=== PATIENT | male | born 1990 | race Caucasian/White ===

== ENCOUNTER 2017-12-21 08:18 | Outpatient (CLI) | payer OTHER ==
[~2017-12-21 08:18] MED LIST: NO HOME MEDS
== END 2017-12-21 09:22 | disposition home or self-care (01) ==
LOC: ORTHO 08:18
PROVIDERS: ATTEND Nurse Practitioner Family
DX: S92.355A Nondisplaced fracture of fifth metatarsal bone, left foot, initial encounter for closed fracture (principal); S93.492A Sprain of other ligament of left ankle, initial encounter; F12.90 Cannabis use, unspecified, uncomplicated; X58.XXXA Exposure to other specified factors, initial encounter; Y93.89 Activity, other specified; Y92.89 Other specified places as the place of occurrence of the external cause; Y99.8 Other external cause status
CPT/HCPCS: 99213; L4360

== ENCOUNTER 2018-01-12 13:35 | Outpatient (CLI) | payer OTHER | END 2018-01-12 14:02 | disposition home or self-care (01) | LOC: ORTHO 13:35 | PROVIDERS: ATTEND Nurse Practitioner Family | DX: S92.355D Nondisplaced fracture of fifth metatarsal bone, left foot, subsequent encounter for fracture with routine healing (principal); S93.492D Sprain of other ligament of left ankle, subsequent encounter; F12.90 Cannabis use, unspecified, uncomplicated; Z72.89 Other problems related to lifestyle; X58.XXXD Exposure to other specified factors, subsequent encounter | CPT/HCPCS: 73630; 99213 ==

== ENCOUNTER 2024-09-07 13:03 | Inpatient (IN) | payer BC ==
[~2024-09-07] VITALS: Ht 182.9 cm; Wt 86.4 kg
[2024-09-07] VITALS (7 sets, daily range): PULSE 74–84; RESP 16–33; O2SAT 94–100
[2024-09-07] MEDS: ondansetron/PF 4mg/2ml inj IV ONE ×2 (13:05→14:27)
[2024-09-07] MEDS: morphine 4 MG/ML inj SYRINge IV ONE (13:05)
[2024-09-07] MEDS: albuterol 2.5 MG/3 ML nebule CONTNEB PRN (13:13)
[2024-09-07 13:18] LABS: BASOPHILS # (AUTO) 0.1 X10'3 (0-0.2); BASOPHILS % (AUTO) 0.4 % (0-1); EOSINOPHILS % (AUTO) 4.9 % (0-6); HEMATOCRIT 50.4 % (42.0-52.0); HEMOGLOBIN 16.9 g/dl (14.0-17.9); LYMPHOCYTES # (AUTO) 4.8 X10'3 (1.1-4.8); LYMPHOCYTES % (AUTO) 23.9 % (21-51); MEAN CORPUSCULAR HEMOGLOBIN 30.5 PG (27.0-31.0); MEAN CORPUSCULAR HGB CONC 33.5 g/dL (33.0-36.5); MEAN CORPUSCULAR VOLUME 91.2 FL (78-98); MEAN PLATELET VOLUME 7.7 FL (7.4-10.4); MONOCYTES # (AUTO) 1.8 X10'3 (0-0.9); MONOCYTES % (AUTO) 9.1 % (2-12); NEUTROPHILS # (AUTO) 12.4 X10'3 (1.8-7.7); NEUTROPHILS % (AUTO) 61.7 % (42-75); PLATELET COUNT 273 X10'3 (140-440); RED BLOOD COUNT 5.52 X10'6 (4.70-6.10); RED CELL DISTRIBUTION WIDTH 13.5 % (11.5-14.5); WHITE BLOOD COUNT 20.2 X10'3 (4.5-11.0)
[2024-09-07] MEDS: methylPREDNISolone sod succ 125mg/2ml vial IV ONE (13:19)
[2024-09-07] MEDS: midazolam 1 mg/ML 2ml injection IV ONE (13:19)
[2024-09-07 13:43] LABS: ALANINE AMINOTRANSFERASE 22 U/L (12-78); ALBUMIN 4.5 G/DL (3.4-5.0); ALBUMIN/GLOBULIN RATIO 1.4 (1.1-1.5); ALKALINE PHOSPHATASE 81 IU/L (46-116); ANION GAP 10 (8-16); ASPARTATE AMINO TRANSFERASE 18 U/L (10-37); BILIRUBIN,TOTAL 0.6 MG/DL (0.1-1.0); BLOOD UREA NITROGEN 13 MG/DL (7-18); BUN/CREATININE RATIO 13.3 (10.0-20.0); CALCIUM 8.7 MG/DL (8.5-10.1); CHLORIDE 110 MMOL/L (99-107); CREATININE 0.98 MG/DL (0.60-1.10); GLUCOSE 160 MG/DL (70-104); POTASSIUM 4.5 MMOL/L (3.5-5.1); SODIUM 147 MMOL/L (135-145); TOTAL PROTEIN 7.8 G/DL (6.4-8.2); eGFR 87 ML/MIN
[2024-09-07 13:50] LABS: ABG BASE EXCESS -10.6 mmol/L (-2.0-3.0); ABG HCO3 16.8 mmol/L (21.0-28.0); ABG OXYGEN SATURATION 99.6 % (94.0-98.0); ABG PCO2 (T) 41.2 mmHg (35.0-48.0); ABG PH (T) 7.224 (7.350-7.450); ABG PO2 (T) 457.7 mmHg (83.0-108.0); ALLEN'S TEST POSITIVE; FCOHb 0.3 % (0.5-1.5); FHHb 0.4 % (0.0-5.0); FMetHb 0.2 % (0.0-1.5); FO2Hb 99.1 % (94.0-98.0); MODE BiPAP; PATIENT TEMPERATURE 36.2; TOTAL HEMOGLOBIN 16.7 G/dl (13.5-17.5)
[2024-09-07 13:50] LABS: PRO BRAIN NATRIURETIC PEPTIDE 88 PG/ML (0-125)
[2024-09-07] MEDS: diphenhydrAMINE 50 mg/ml inj IV ONE (14:10)
[2024-09-07] MEDS: metoclopramide 5 mg/ml inj IV ONE (14:23)
[2024-09-07] MEDS: normal saline 1000ml 1,000 ML IVB ONE (14:27)
[2024-09-07] MEDS ORDERED: propofol 1000mg/100ml bottle 100 ML IV SCH (16:25)
[2024-09-07] MEDS: CefTRIAXone 2gm/D5W 50ml BAG 50 ML IV ONE (17:58)
[2024-09-07] MEDS: normal saline 1000ML IV soln IVB ONE (17:59)
[2024-09-07] MEDS ORDERED: ALBU10.7 IH (19:49)
[2024-09-07] MEDS ORDERED: albuterol 2.5 MG/3 ML nebule NEB PRN (20:30)
[2024-09-07] MEDS ORDERED: mag hydrox/Alum hydrox/simeth 30ml oral suspension PO PRN (20:30)
[2024-09-07] MEDS ORDERED: ondansetron/PF 4mg/2ml inj IV PRN (20:30)
[2024-09-07] MEDS ORDERED: magnesium Cl slow-release 64mg tablet PO PRN (20:30)
[2024-09-07] MEDS ORDERED: magnesium sulf-water 4G/100mL 100 ML IV PRN (20:30)
[2024-09-07] MEDS ORDERED: morphine 2 MG/ML inj. syringe IV PRN (20:30)
[2024-09-07] MEDS ORDERED: potassium Cl 40MEQ/1/2NS 520ml 520 ML IV PRN (20:30)
[2024-09-07] MEDS ORDERED: magnesium hydroxide 30ml (MOM) UD suspension PO PRN (20:30)
[2024-09-07] MEDS ORDERED: acetaminophen 325mg tablet PO PRN ×2 (20:30)
[2024-09-07] MEDS ORDERED: potassium Cl 20 mEq SR tablet PO PRN ×2 (20:30)
[2024-09-07] MEDS ORDERED: magnesium sulf-water 2g/50mL 50 ML IV PRN (20:30)
[2024-09-07 20:40] LABS: BILIRUBIN,URINE NEGATIVE (Neg); CLARITY,URINE CLOUDY (Clear); COLOR,URINE YELLOW (Yellow); GLUCOSE, URINE 100 mg/dl (Neg); KETONES,URINE NEGATIVE (Neg); LEUKOCYTE ESTERASE ,URINE NEGATIVE (Neg); NITRITES, URINE NEGATIVE (Neg); OCCULT BLOOD,URINE TRACE-INTACT (Neg); PH,URINE 5.5 (4.8-8.0); PROTEIN,URINE >=300 mg/dl (Neg); UROBILINOGEN,URINE 0.2 E.U/dL (0.2-1.0)
[2024-09-07 21:29] LABS: URINE AMPHETAMINE SCREEN NEGATIVE (Neg); URINE BARBITUATE SCREEN NEGATIVE (Neg); URINE BENZODIAZEPINES SCREEN POSITIVE (Neg); URINE CANNABINOID SCREEN POSITIVE (Neg); URINE COCAINE SCREEN NEGATIVE (Neg); URINE METHADONE SCREEN NEGATIVE (Neg); URINE OPIATE SCREEN NEGATIVE (Neg); URINE PHENCYCLIDINE SCREEN NEGATIVE (Neg)
[2024-09-07] MEDS: ipratropium/albuterol 3ml nebule NEB SCH (21:34)
[2024-09-07 21:44] LABS: UA COLLECTION TYPE STRAIGHT CATH
[2024-09-07 21:45] LABS: AMORPHOUS URATES 3+; BACTERIA,URINE NONE SEEN /HPF (Neg); SQUAMOUS EPITHELIAL CELL,UR NONE SEEN /LPF (FEW); WBC,URINE NONE SEEN /HPF (0-4)
[2024-09-08] VITALS (15 sets, daily range): BP systolic 116–121; BP diastolic 44–71; PULSE 73–94; RESP 14–20; TEMP 98.8–99.4; O2SAT 94–97
[2024-09-08] MEDS: normal saline 1000ml 1,000 ML IV SCH (01:23)
[2024-09-08 03:37] LABS: BASOPHILS % (AUTO) 0 % (0-1); EOSINOPHILS % (AUTO) 0 % (0-6); HEMATOCRIT 43.5 % (42.0-52.0); HEMOGLOBIN 14.5 g/dl (14.0-17.9); LYMPHOCYTES # (AUTO) 1.2 X10'3 (1.1-4.8); LYMPHOCYTES % (AUTO) 10.6 % (21-51); MEAN CORPUSCULAR HEMOGLOBIN 30.2 PG (27.0-31.0); MEAN CORPUSCULAR HGB CONC 33.4 g/dL (33.0-36.5); MEAN CORPUSCULAR VOLUME 90.5 FL (78-98); MEAN PLATELET VOLUME 7.9 FL (7.4-10.4); MONOCYTES # (AUTO) 0.8 X10'3 (0-0.9); MONOCYTES % (AUTO) 6.9 % (2-12); NEUTROPHILS # (AUTO) 9.4 X10'3 (1.8-7.7); NEUTROPHILS % (AUTO) 82.5 % (42-75); PLATELET COUNT 204 X10'3 (140-440); RED CELL DISTRIBUTION WIDTH 13.5 % (11.5-14.5); WHITE BLOOD COUNT 11.4 X10'3 (4.5-11.0)
[2024-09-08 03:47] LABS: ALBUMIN 3.7 G/DL (3.4-5.0); ANION GAP 12 (8-16); BLOOD UREA NITROGEN 13 MG/DL (7-18); CALCIUM 8.6 MG/DL (8.5-10.1); CHLORIDE 110 MMOL/L (99-107); CREATININE 0.81 MG/DL (0.60-1.10); GLUCOSE 106 MG/DL (70-104); MAGNESIUM 2.1 MG/DL (1.5-2.4); POTASSIUM 3.7 MMOL/L (3.5-5.1); SODIUM 144 MMOL/L (135-145); TOTAL CARBON DIOXIDE 22.4 MMOL/L (24-32); eCRCL 140 ML/MIN; eGFR > 90 ML/MIN
[2024-09-08] MEDS: K and/or MAG REPLACEMENT MC SCH (06:56)
[2024-09-08] MEDS: enoxaparin 40mg/0.4ml syringe SUBCUT SCH (06:57)
[2024-09-08] MEDS: docusate sod 100mg capsule PO SCH (06:57)
[2024-09-08] MEDS: predniSONE 20 mg tablet PO SCH (07:41)
[2024-09-08] MEDS: budesonide 0.5mg/2ml UD nebule IH SCH ×2 (07:49→19:39)
[2024-09-09 05:51] LABS: BASOPHILS % (AUTO) 0.2 % (0-1); EOSINOPHILS # (AUTO) 0.2 X10'3 (0-0.9); EOSINOPHILS % (AUTO) 1.4 % (0-6); HEMATOCRIT 43.1 % (42.0-52.0); HEMOGLOBIN 14.4 g/dl (14.0-17.9); LYMPHOCYTES # (AUTO) 3.2 X10'3 (1.1-4.8); MEAN CORPUSCULAR HEMOGLOBIN 30.1 PG (27.0-31.0); MEAN CORPUSCULAR HGB CONC 33.5 g/dL (33.0-36.5); MEAN CORPUSCULAR VOLUME 89.9 FL (78-98); MEAN PLATELET VOLUME 7.8 FL (7.4-10.4); MONOCYTES # (AUTO) 0.7 X10'3 (0-0.9); MONOCYTES % (AUTO) 5.9 % (2-12); NEUTROPHILS # (AUTO) 7.3 X10'3 (1.8-7.7); NEUTROPHILS % (AUTO) 64.5 % (42-75); PLATELET COUNT 192 X10'3 (140-440); RED CELL DISTRIBUTION WIDTH 13.9 % (11.5-14.5); WHITE BLOOD COUNT 11.4 X10'3 (4.5-11.0)
[2024-09-09 06:00] VITALS: BP 102/61; PULSE 71; RESP 14; TEMP 98; O2SAT 95
[2024-09-09 06:10] LABS: ALBUMIN 3.4 G/DL (3.4-5.0); ANION GAP 10 (8-16); BLOOD UREA NITROGEN 12 MG/DL (7-18); BUN/CREATININE RATIO 13.8 (10.0-20.0); CALCIUM 8.6 MG/DL (8.5-10.1); CHLORIDE 111 MMOL/L (99-107); CREATININE 0.87 MG/DL (0.60-1.10); GLUCOSE 88 MG/DL (70-104); MAGNESIUM 2.1 MG/DL (1.5-2.4); POTASSIUM 3.3 MMOL/L (3.5-5.1); SODIUM 145 MMOL/L (135-145); TOTAL CARBON DIOXIDE 23.6 MMOL/L (24-32); eCRCL 130 ML/MIN; eGFR > 90 ML/MIN
[2024-09-09 07:33] VITALS: PULSE 68; RESP 12; O2SAT 95
[2024-09-09 07:41] VITALS: PULSE 76; RESP 16
[2024-09-09 08:00] VITALS: RESP 14; O2SAT 95
[2024-09-09] MEDS ORDERED: IPRA4AER IH (10:33)
[2024-09-09] MEDS ORDERED: ALBU10.7 IH (10:33)
[2024-09-09] MEDS ORDERED: POTA-206 PO (10:33)
[2024-09-09] MEDS ORDERED: PRED20TA PO (10:33)
[2024-09-09 11:02] VITALS: PULSE 97; RESP 16; O2SAT 96
[2024-09-09 11:06] VITALS: PULSE 80; RESP 16
== END 2024-09-09 12:05 | disposition home or self-care (01) | DRG 202 ==
LOC: ER 13:03 → ED HOLD 20:31 → SUR 3N 09-08 14:31
PROVIDERS: ADMIT Internal Medicine Critical Care Medicine; ATTEND Family Medicine
DX: J45.901 Unspecified asthma with (acute) exacerbation (principal); J96.01 Acute respiratory failure with hypoxia; E87.6 Hypokalemia; F12.10 Cannabis abuse, uncomplicated; Z20.822 Contact with and (suspected) exposure to COVID-19
CPT/HCPCS: 36415; 36600; 71045; 80048; 80053; 80305; 81001; 82803; 83735; 83880; 84484; 85018; 85025; 87081; 87502; 87503; 87811; 93005; 94640; 94760; 96361; 96365; 96375; 99285; A4314; A4340; A7015; C1758; G0378; J0696; J1200; J2250; J2765; J2919; J7030; J7512